=== PATIENT | female | born 1980 | race Two or more races ===

== ENCOUNTER 2017-11-08 22:17 | Emergency (ER) | payer BC ==
[~2017-11-08] VITALS: Ht 177.8 cm; Wt 74.4 kg
[2017-11-08] MEDS ORDERED: NKM (22:24)
[2017-11-08] MEDS ORDERED: Clindamycin 900mg 50 ML IVPB ONE (22:45)
[2017-11-08] MEDS ORDERED: IBUPROFEN600 MG ORAL (22:59)
[2017-11-08] MEDS ORDERED: CLINDAMYCIN HC300 MG ORAL (22:59)
--- NOTE | 2017-11-08 23:00 | Emergency Room Report ---
History of Present Illness General Chief Complaint: Pain Source: Patient Present Illness HPI Is a 37-year-old female who has no past medical history. She presents with chief complaint of right foot pain. Last night she felt some fever or chills. Today she noticed some swelling and redness to her right foot. Increasing pain tonight. Pain rating up the leg. No trauma. She thought she may have been bitten. Denies any trauma to the foot. Pain with palpation and walking. No crepitance. Denies any other complaint. Allergies: Coded Allergies: No Known Allergies (Unverified , 11/08/17) Patient History Past Medical History: see triage record, old chart reviewed Past Surgical History: none Pertinent Family History: none Social History: Denies: smoking Last Menstrual Period: 11/04/17 Now: No Immunizations: other Reviewed Nursing Documentation: PMH: Agreed; PSxH: Agreed Nursing Documentation-PM Past Medical History: No Stated History Review of Systems Eye: Denies: eye pain, blurred vision ENT: Denies: ear pain, nose congestion, throat swelling Respiratory: Denies: cough, shortness of breath Cardiovascular: Denies: chest pain, palpitations Gastrointestinal: Denies: abdominal pain, diarrhea, nausea, vomiting Musculoskeletal: Reports: joint pain, joint swelling, muscle pain; Denies: back pain Skin: Denies: rash Neurological: Denies: headache, numbness Endocrine: Denies: increased thirst, increased urine Hematologic/Lymphatic: Denies: easy bruising All Other Systems: negative except mentioned in HPI Physical Exam Vital Signs Date Time Temp Pulse Resp B/P (MAP) Pulse Ox O2 Delivery O2 Flow Rate FiO2 11/08/17 22:21 98.3 88 19 110/74 99 Room Air 98.2 vitals normal Sp02 EP Interpretation: reviewed, normal General Appearance: well appearing, no apparent distress, alert Head: normocephalic, atraumatic Eyes: bilateral eye PERRL, bilateral eye EOMI ENT: hearing grossly normal, normal pharynx Neck: full range of motion, supple, no meningismus Respiratory: chest non-tender, lungs clear, normal breath sounds Cardiovascular #1: regular rate, rhythm, no murmur Gastrointestinal: normal bowel sounds, non tender, no mass, no organomegaly, no bruit, non-distended Musculoskeletal: back normal, gait/station normal, normal range of motion, other - Right foot: There is generalized edema and erythema laterally. This involved the foot tracking up to the ankle. Near the ankle there is a small blister measuring about one to 2 mm. No crepitance or any abscess seen. Neurologic: alert, oriented x3 Psychiatric: mood/affect normal Skin: warm/dry Medical Decision Making Diagnostic Impression: Primary Impression: Cellulitis of right foot ER Course Patient with cellulitis of the foot. Most likely MRSA. No evidence of necrotizing fasciitis or abscess seen. No lymphatic spread. IV antibiotic started here. We'll discharge home. Last Vital Signs Date Time Temp Pulse Resp B/P (MAP) Pulse Ox O2 Delivery O2 Flow Rate FiO2 11/08/17 22:21 98.3 88 19 110/74 99 Room Air 98.2 Status: improved Disposition: HOME, SELF-CARE Condition: Stable Scripts Ibuprofen* (MOTRIN*) 600 Mg Tablet 600 MG ORAL THREE TIMES A DAY, #30 TAB 0 Refills Prov: ARYA CASTLE M.D. 11/08/17 Clindamycin Hcl (CLINDAMYCIN HCL) 300 Mg Capsule 300 MG ORAL THREE TIMES A DAY, #21 CAP Prov: ARYA CASTLE M.D. 11/08/17 Additional Instructions: Keep foot elevated. Ice pack to the area. Follow-up with your DrLuis Fernando in 2 to 3 days to recheck. Return if symptom worsen. ARYA CASTLE M.D. Nov 08, 2017 23:00
[2017-11-08 23:39] LABS: BASOPHILS % (AUTO) 0.4 % (0.0-2.0); EOSINOPHILS % (AUTO) 1.5 % (0.0-3.0); HEMATOCRIT 40.5 % (37.0-47.0); HEMOGLOBIN 13.7 G/DL (12.0-16.0); LYMPHOCYTES % (AUTO) 30.4 % (20.0-45.0); MEAN CORPUSCULAR VOLUME 90 FL (80-99); MONOCYTES % (AUTO) 7.5 % (1.0-10.0); NEUTROPHILS % (AUTO) 60.2 % (45.0-75.0); PLATELET COUNT 230 K/UL (150-450); RED CELL DISTRIBUTION WIDTH 11.9 % (11.6-14.8); WHITE BLOOD COUNT 10.9 K/UL (4.8-10.8)
[2017-11-08 23:40] VITALS: BP 93/48
[2017-11-08 23:48] LABS: ANION GAP 6 mmol/L (5-15); BLOOD UREA NITROGEN 15 mg/dL (7-18); CALCIUM 9.1 MG/DL (8.5-10.1); CARBON DIOXIDE 29 MMOL/L (21-32); CHLORIDE 104 MMOL/L (98-107); CREATININE 0.6 MG/DL (0.55-1.30); POTASSIUM 4.4 MMOL/L (3.5-5.1); SODIUM 139 MMOL/L (136-145)
== END 2017-11-09 00:01 | disposition home or self-care (01) ==
LOC: EMR 22:47
DX: M79.671 Pain in right foot (principal); L03.115 Cellulitis of right lower limb
CPT/HCPCS: 36415; 80048; 85025; 96365; 99284; S0077